=== PATIENT | female | born 1940 | race Caucasian/White ===

== ENCOUNTER 2020-01-19 08:06 | Outpatient (CLI) | payer BC, SELFPAY ==
--- NOTE | ~2020-01-19 | NM_ITS ---
EXAMINATION: NM evon stress w perfusion DATE: 01/19/2020 11:37 INDICATION: Preoperative evaluation with intermittent right bundle branch block on preoperative EKG a nd dyspnea on exertion. TECHNIQUE: Rest images were obtained following intravenous administration of 9.4 mCi Tc99m tetrofosmi n (Myoview). The patient was infused intravenously with Lexiscan (Regadenoson). Then, 27.8 mCi Tc99m tetrofosmin (Myoview) was administered intravenously, and stress images were obtained. Data was recon structed into short axis and horizontal and vertical long axis SPECT images. Gated SPECT images were also obtained. COMPARISON: None. FINDINGS: Small mild perfusion defect centered at the mid anterolateral wall involving small portions of the immediately adjacent mid inferolateral and basilar anterolateral segments. This appears large ly is not completely reversible with equivocal small residual perfusion defect on the rest images at the mid anterolateral segment. There is normal left ventricular chamber size, wall motion and ejecti on fraction. Left ventricular ejection fraction measures >70%. IMPRESSION: 1. Small region of mild ischemia centered at the mid anterolateral segment with equivocal small under lying nonreversible infarct. 2. Left ventricular ejection fraction measuring >70%. Reviewed, dictated and finalized at location A. IMPRESSION: 1. Small region of mild ischemia centered at the mid anterolateral segment with equivocal small underlying nonreversible infarct. 2. Left ventricular ejection fraction measuring >70%.
--- NOTE | 2020-01-19 09:10 | EST_ITS ---
Patient Info Name: Lily Dawn Age: 79 years : 1940 Gender: Female Ht: 65 in Wt: 139 lbs BSA: 1.71 m2 Exam Date: 01/19/2020 9:52 AM Exam Location: [facility] Stress Patient Status: Outpatient Admit Date: 01/19/2020 Staff Ordering Physician: Giancarlo Prather DO Attending Provider: Giancarlo Prather DO Exercise Technologist: Radha Anderson RDCS Exercise Physician: Giancarlo Prather DO Exam Type: CA stress evon w NM Study Info Indications R06.09 - Other forms of dyspnea A regadenoson stress test was performed. Summary 1. 1. Negative lexiscan stress test for ischemic ST changes by ECG criteria. 2. 2. Baseline hypertension. 3. 3. Nuclear scan to follow and will be reported separately. Please correlate with it. 4. 4. Patient informed of the above results. Protocol: Lexiscan Stress ECG Details Stage: REST Duration (min): 3 min : 39 sec HR (bpm): 63 SBP (mmHg): 145 DBP (mmHg): 90 Stage: REST Duration (min): 6 min : 38 sec HR (bpm): 66 SBP (mmHg): 145 DBP (mmHg): 90 Stage: STAGE 1 Duration (min): 0 min : 59 sec HR (bpm): 91 SBP (mmHg): 161 DBP (mmHg): 82 Stage: RECOVERY Duration (min): 1 min : 0 sec HR (bpm): 98 SBP (mmHg): 143 DBP (mmHg): 84 Stage: RECOVERY Duration (min): 2 min : 0 sec HR (bpm): 92 SBP (mmHg): 143 DBP (mmHg): 84 Stage: RECOVERY Duration (min): 3 min : 0 sec HR (bpm): 90 SBP (mmHg): 123 DBP (mmHg): 83 Stage: RECOVERY Duration (min): 4 min : 0 sec HR (bpm): 92 SBP (mmHg): 123 DBP (mmHg): 83 Stage: RECOVERY Duration (min): 4 min : 54 sec HR (bpm): 92 SBP (mmHg): 126 DBP (mmHg): 85 Rest HR: 66 bpm Peak HR: 101 bpm Rest Sys BP: 145 mmHg Peak Sys BP: 161 mmHg Max Pred HR: 142 bpm % Max Pred HR: 71 % Target HR: 121 bpm Max RPP: 16,261 bpm*mmHg Termination Reason: Completed protocol Cardiac Symptoms: Stomach discomfort Total Time: 1 min : 0 sec Rest Sutherland BP: 90 mmHg Peak Sutherland BP: 82 mmHg Total Dose: 0.4 mg Resting ECG Sinus rhythm with IRBBB. Stress ECG No ST changes. Arrhythmias None. Report Signatures
== END 2020-01-19 08:07 | disposition home or self-care (01) ==
PROVIDERS: PCP Internal Medicine; Visit Provider Internal Medicine Cardiovascular Disease
DX: Z01.810 Encounter for preprocedural cardiovascular examination (principal); R06.09 Other forms of dyspnea; I10 Essential (primary) hypertension
CPT/HCPCS: 78452; 93017; A9502; J2785

== ENCOUNTER 2022-03-07 01:39 | Inpatient (IN) | payer MEDICARE, BC, SELFPAY ==
[2022-03-07] VITALS (8 sets, daily range): BP systolic 100–119; BP diastolic 55–69; PULSE 66–80; RESP 14–18; TEMP 36.7–37.5; O2SAT 91–100; BMI 20.7
--- NOTE | ~2022-03-07 | XR_ITS ---
EXAMINATION: XR chest 1V portable DATE: 03/07/2022 02:33 INDICATION: Fall TECHNIQUE: frontal view of the chest was obtained. COMPARISON: Chest radiograph dated 06/28/2017 FINDINGS: Chronic elevation of the right hemidiaphragm. Pulmonary vascular congestion and increased interstitia l and mild airspace opacities throughout both lungs with perihilar predominance. No pleural effusion or pneumothorax. The cardiomediastinal silhouette is normal. Atherosclerotic aorta. Mild thoracolumba r levocurvature. No evident acute osseous abnormality. IMPRESSION: 1. Pulmonary vascular congestion with bilateral mild increased interstitial and airspace opacities wh ich could represent mild pulmonary edema, atelectasis, pneumonia or some combination thereof. Reviewed, dictated and finalized at location A. IMPRESSION: 1. Pulmonary vascular congestion with bilateral mild increased interstitial and airspace opacities which could represent mild pulmonary edema, atelectasis, pn eumonia or some combination thereof.
--- NOTE | ~2022-03-07 | XR_ITS ---
EXAMINATION: XR hip LT min 3V w AP pelvis DATE: 03/07/2022 02:33 INDICATION: Left hip pain post fall TECHNIQUE: Anteroposterior view of the pelvis and anteroposterior and cross-table lateral views of th e left hip were obtained. COMPARISON: None. FINDINGS: Transcervical fracture of the proximal left femur. There is 2 cm proximal migration and some external rotation. The fracture is mildly comminuted with an additional small fracture fragment at the infero medial margin of the fracture line. No other fractures identified. 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 Aortobiiliac endoluminal stent. IMPRESSION: 1. Proximal migration and external rotation of a mildly comminuted transcervical fracture of the prox imal left femur. Reviewed, dictated and finalized at location A. IMPRESSION: 1. Proximal migration and external rotation of a mildly comminuted transcervica l fracture of the proximal left femur.
--- NOTE | ~2022-03-07 | CT_ITS ---
EXAMINATION: CTA abdomen DATE: 03/07/2022 14:59 INDICATION: Leaking abdominal aortic aneurysm. TECHNIQUE: Computed tomographic angiography (CTA) of the abdomen was performed with 100 mL Omnipaque- 350 intravenous contrast. Automated exposure control and iterative reconstruction technique were empl oyed. The dose-length product was 189.82 mGy-cm. Maximum intensity projection 3D-reconstructions of t he aorta and other arteries were constructed by the technologist on a separate workstation. COMPARISON: Chest 2 views 02/19/2016 FINDINGS: The visualized portions of the lung bases demonstrate mild dependent atelectasis. There is chronic elevation of right hemidiaphragm. A calcified left lung nodule and calcified left hilar lymph nodes are consistent with old granulomatous disease. The heart size is normal. No pericardial effusi on. The liver is normal. Calcifications in the spleen are consistent with old granulomatous disease. The gallbladder is distended. Calcifications in the pancreas are consistent with chronic pancreatitis . There is a diverticulum of the second portion of the duodenum. The adrenal glands are normal. There is a 6 mm cyst in right kidney. There is focal atrophy of inferior pole of left kidney. There are no dilated loops of bowel. There is diverticulosis of the colon without evidence of diverticulitis. The re is a 6.9 cm fusiform infrarenal aortic aneurysm. Partially visualized is a stent graft in abdomina l aorta and the common iliac arteries. There are densities in the aneurysm sac. There is enlargement of left iliacus muscle with adjacent fat stranding. There are no pathologically enlarged lymph nodes. There is no free intraperitoneal fluid. There is moderate stenosis of celiac axis and mild stenosis of origin of superior mesenteric artery. There is mild stenosis of right renal artery origin and mode rate stenosis of left renal artery origin. There is moderate thoracic spondylosis and mild lumbar spo ndylosis. There is mild chronic anterior wedging of multiple thoracic vertebral bodies. IMPRESSION: 1. Partially visualized asymmetric enlargement of left iliacus muscle, likely hematoma. 2. 6.9 cm fusiform aneurysm of infrarenal aorta with partially visualized stent graft. Densities in t he aneurysm sac are suspicious for type II endoleak, but no noncontrast CT was performed. Abdomen and pelvis CTA without and with contrast is recommended. Reviewed, dictated and finalized at location B. IMPRESSION: 1. Partially visualized asymmetric enlargement of left iliacus muscle, likely h ematoma. 2. 6.9 cm fusiform aneurysm of infrarenal aorta with partially visualized stent graft. Densities in the aneurysm sac are suspicious for type II endoleak, but no noncontrast CT was performed. Abdomen and pelvis CTA without and with contra st is recommended.
--- NOTE | 2022-03-07 02:19 | PC.NURSE ---
XR at bedside
[2022-03-07 02:40] LABS: Basophils Absolute Auto 0.1 K/mm3 (0.0-0.1); Basophils Percent Auto 0.3 % (0.2-1.2); Eosinophils Percent Auto 0.3 % (0-4.4); Hematocrit 34.7 % (37.0-47.0); Immature Granulocyte Absolute 0.21 K/mm3 (0.00-0.031); Immature Granulocyte Percent A 1.4 % (0-0.5); Lymphocytes Absolute Auto 1.79 K/mm3 (0.9-3.2); Lymphocytes Percent Auto 12.2 % (18.3-44.2); Mean Corpuscular HGB Conc 31.7 g/dl (32-36); Mean Corpuscular Volume 97.7 fl (80-100); Mean Platelet Volume 9.9 fl (7.4-10.4); Monocytes Absolute Auto 1.1 K/mm3 (0.1-0.6); Monocytes Percent Auto 7.8 % (2.6-8.5); Neutrophils Absolute Auto 11.5 K/mm3 (1.3-6.7); Platelet Count Result 165 k/mm3 (150-375); Red Blood Count 3.55 M/mm3 (4.2-5.4); Red Cell Distribution Width 14.6 % (11.5-14.5); White Blood Count 14.7 K/mm3 (4.5-10.0)
[2022-03-07 02:51] LABS: Anion Gap 4 mmol/L (8-16); Blood Urea Nitrogen 19 mg/dL (7-17); Calcium 8.4 mg/dL (8.4-10.2); Carbon Dioxide 27 mmol/L (22-30); Chloride 107 mmol/L (98-107); Estimated Glomerular Filt Rate 53; Glucose 148 mg/dL (65-110); Potassium 3.8 mmol/L (3.4-5.0); Sodium 138 mmol/L (137-145)
[2022-03-07 02:54] LABS: INR 1.1; Prothrombin Time 14.1 Seconds (11.1-14.7)
[2022-03-07 02:55] LABS: Partial Thromboplastin Time 28.8 SECONDS (22.3-36.8)
--- NOTE | 2022-03-07 03:53 | ED.FALL ---
HPI - Fall General Chief Complaint: Fall Stated Complaint: FALL History of Present Illness HPI Narrative: Patient is an 81-year-old female who presents ER status post fall. Patient was getting out of bed when she fell to the ground. helped to get her back up and she slid out of bed landing on about again. She has suffered pain and deformity to her left hip. She has shortening the leg. No numbness or tingling. Denies head trauma. Patient has some dementia but seems to be able to answer questions. No evidence of trauma to the head. Patient is not on blood thinners. Related Data Home Medications Medication Instructions Recorded Confirmed memantine 10 ea PO PER PKG DIR 03/07/22 03/07/22 Allergies Allergy/AdvReac Type Severity Reaction Status Date / Time No Known Allergies Allergy Unknown Verified 03/07/22 01:47 Review of Systems Review of Systems: All systems reviewed & are unremarkable except as noted in HPI and below (Limited due to dementia) Constitutional: Constitutional: Denies chills, Denies fever(s) and Denies weakness Musculoskeletal: Musculoskeletal: Reports arthralgias and Reports joint swelling Neurologic: Denies headache(s), Denies focal weakness and Denies numbness PMFSH Past Medical History Medical History (Updated 03/07/22 @ 04:39 by Joby Franz MD) Abdominal aortic aneurysm without rupture (07/24/19) Essential (primary) hypertension Eversion deformity of right foot Hyperlipidemia, unspecified (07/24/19) Personal history of urinary (tract) infections Surgical History Surgical History (Updated 03/07/22 @ 04:20 by Joby Franz MD) History of AAA (abdominal aortic aneurysm) repair Family History Family History (Updated 06/02/16 @ 23:21 by DOCTOR UNKNOWN) Sibling Patient's brother is in good health Family history of diabetes mellitus in first degree relative Mother Family history of kidney disease, Onset Age: 41 Family history of diabetes mellitus in first degree relative, Onset Age: 41 Father Patient's father is Social History Social History Smoking status: Never smoker Alcohol intake: never Exam Narrative: GENERAL: Well-appearing, well-nourished, and in no acute distress. HEAD: Normocephalic, atraumatic. EYES: PERRL and EOMI. ENT: Mucous membranes moist. CHEST: Clear to auscultation. No respiratory distress. HEART: Regular rate and rhythm. Normal peripheral pulses. ABDOMEN: Soft, nontender, previous repaired AAA palpated but not pulsatile, normal active bowel sounds. EXTREMITIES: Unable to perform range of motion left lower extremity due to pain at the hip. Left leg shortening and external rotation noted. No edema. No abnormality to the right lower extremity or upper extremities. SKIN: Warm, dry, no rash. NEURO: Alert and oriented x3. PSYCH: Normal mood and affect. Course Course Emergency Course: Patient family informed of results. Consulted Dr. Khanna. Admit to hospitalist service. Keep n.p.o. Vital Signs Vital signs: Vital Signs Temperature 98.4 F 03/07/22 01:41 Pulse Rate 66 03/07/22 01:41 Respiratory Rate 14 03/07/22 01:41 Blood Pressure 110/57 L 03/07/22 01:41 Pulse Oximetry 91 03/07/22 01:41 Temperature 98.4 F 03/07/22 01:41 Pulse Rate 74 03/07/22 04:22 Respiratory Rate 14 03/07/22 04:22 Blood Pressure 116/69 03/07/22 04:22 Pulse Oximetry 100 03/07/22 04:22 MDM - Fall Lab Data Result diagrams: 03/07/22 02:34 03/07/22 02:34 Labs: Lab Results 03/07/22 03/07/22 03/07/22 Range/Units 02:34 02:34 02:34 WBC 14.7 H (4.5-10.0) K/mm3 RBC 3.55 L (4.2-5.4) M/mm3 Hgb 11.0 L (12.0-15.0) g/dL Hct 34.7 L (37.0-47.0) % MCV 97.7 (80-100) fl MCH 31.0 (26-34) pg MCHC 31.7 L (32-36) g/dl RDW 14.6 H (11.5-14.5) % Plt Count 165 (150-375) k/mm3 MPV 9.9 (7.4-10.4) fl Immature Gran % (Auto) 1.4
[2022-03-07] MEDS: MORPHINE SULFATE (*CRX) 4 MG/ML INJ IV PUSH ×3 (04:03→23:32)
--- NOTE | 2022-03-07 04:50 | ADMGEN ---
This patient, Lily Dawn, was admitted to Medical Room 348-01. Patient/family oriented to hospital policies and general routines including ID bracelet, bed and alarms, visiting hours, pain management, procedures, bathroom and other care routines, personal items, smoking policy, room service/diet, and visiting hours. Information on how to activate the Rapid Response Team has been discussed. Patient/Family are encouraged to report perceived risks to care and to ask questions if they do not understand what they are told or what they should do.
[2022-03-07] MEDS: SODIUM CHLORIDE 0.9% IV 1,000 ML 100 ML IV CONT ×2 (05:50→17:10)
--- NOTE | 2022-03-07 07:48 | PM.CNOR ---
Assessment and Plan Assessment and plan (1) Fracture of femoral neck, left, closed: Qualifiers: Encounter type: initial encounter Qualified Code(s): S72.002A - Fracture of unspecified part of neck of left femur, initial encounter for closed fracture Code(s): S72.002A - Fracture of unspecified part of neck of left femur, initial encounter for closed fracture Status: Acute Assessment and Plan: 81-year-old female with a displaced left femoral neck fracture. Surgically, her best option is going to be a cemented bipolar replacement. Her risk for cardiovascular complications needs to be better delineated. I discussed this with the hospitalist on the case. No plan for surgery today. Thank you for the consultation. History of Present Illness HPI Consult date: 03/07/22 Consult reason: fracture Chief complaint: hip fracture Narrative: 81-year-old female who fell out of bed this morning or late last night. She was evaluated in the [facility] and found to have a displaced left femoral neck fracture. She was admitted for further evaluation and management. Her history is significant for having had AAA repair couple of years ago. She does not recall the last time that the repair was evaluated. She said she usually gets around reasonably well at home without any type of a gait aid. Review of Systems Constitutional: Constitutional: Denies chills and Denies fever(s) Eyes: Eyes: Reports no additional eye complaints ENT: Reports system reviewed and no additional complaints, except as documented Cardiovascular: Cardiovascular: Denies chest pain Respiratory: Respiratory: Reports no additional respiratory complaints Gastrointestinal: Gastrointestinal: Reports abdominal pain ( Does report intermittent belly pain) and Denies bloating PMFSH Past Medical History Medical History (Updated 03/07/22 @ 07:55 by Elliot Khanna MD) Abdominal aortic aneurysm without rupture (07/24/19) Essential (primary) hypertension Eversion deformity of right foot Hyperlipidemia, unspecified (07/24/19) Personal history of urinary (tract) infections Surgical History Surgical History (Updated 03/07/22 @ 04:20 by Joby Franz MD) History of AAA (abdominal aortic aneurysm) repair Family History Family History (Updated 03/07/22 @ 05:37 by Elle Cabral RN) Sibling Family history of diabetes mellitus in first degree relative Patient's brother is in good health Abdominal aneurysm Mother Family history of kidney disease, Onset Age: 41 Family history of diabetes mellitus in first degree relative, Onset Age: 41 Father Patient's father is Dementia Social History Social History Smoking status: Former smoker Tobacco type: cigarettes Alcohol intake: never Substance use: never Substance use type: does not use Spiritual care concerns: No Meds Home Medications and Allergies Home Medications Medication Instructions Recorded Confirmed Type memantine 10 mg PO BID 03/07/22 03/07/22 History pantoprazole 40 mg PO DAILY 03/07/22 03/07/22 History sertraline 75 mg PO DAILY 03/07/22 03/07/22 History Allergies Allergy/AdvReac Type Severity Reaction Status Date / Time No Known Allergies Allergy Unknown Verified 03/07/22 01:47 Vital Signs Vital Signs - 24 hr 03/07/22 01:41 03/07/22 03:15 03/07/22 04:20 Temperature 98.4 F Pulse Rate 66 76 75 Respiratory Rate 14 14 14 Blood Pressure 110/57 L 119/63 116/69 Pulse Oximetry 91 95 97 03/07/22 04:22 03/07/22 04:50 03/07/22 04:51 Temperature 98.4 F Pulse Rate 74 80 Respiratory Rate 14 16 Blood Pressure 116/69 100/55 L Pulse Oximetry 100 92 99 Exam Const: General: cooperative, no acute distress and alert Nutritional Appearance: other Orientation/consciousness: Other orientation findings ( slightly confused this morning) Limitations: no limitations HENMT: Head: normal to inspection E
--- NOTE | 2022-03-07 11:10 | PM.IMHP ---
H&P: HPI History of Present Illness Date/Time: 03/07/22 11:10 Chief Complaint: Hip pain Narrative: 81 years old female with past medical history of dementia aortic aneurysm status post repair last time patient seen her vascular surgeon was last December patient is poor historian but complain of abdominal pain on exam abdomen is tender patient daughter was in the room patient had a fall start complaining of left hip pain x-ray of the pelvis showed left hip fracture require surgical intervention I discussed with the surgeon patient probably high risk need to be transferred to facility where patient has established care at [facility] Review of Systems Review of Systems: Poor historian unable to obtain [facility] Past Medical History Medical History Abdominal aortic aneurysm without rupture (07/24/19) Essential (primary) hypertension Eversion deformity of right foot Hyperlipidemia, unspecified (07/24/19) Personal history of urinary (tract) infections Surgical History Surgical History History of AAA (abdominal aortic aneurysm) repair Family History Family History Sibling Family history of diabetes mellitus in first degree relative Patient's brother is in good health Abdominal aneurysm Mother Family history of kidney disease, Onset Age: 41 Family history of diabetes mellitus in first degree relative, Onset Age: 41 Father Patient's father is Dementia Social History Social History Smoking status: Former smoker Tobacco type: cigarettes Alcohol intake: never Substance use: never Substance use type: does not use Spiritual care concerns: No Meds Home Medications and Allergies Home Medications Medication Instructions Recorded Confirmed Type memantine 10 mg PO BID 03/07/22 03/07/22 History pantoprazole 40 mg PO DAILY 03/07/22 03/07/22 History sertraline 75 mg PO DAILY 03/07/22 03/07/22 History Allergies Allergy/AdvReac Type Severity Reaction Status Date / Time No Known Allergies Allergy Unknown Verified 03/07/22 01:47 Vital Signs Vital Signs - 24 hr 03/07/22 01:41 03/07/22 03:15 03/07/22 04:20 Temperature 98.4 F Pulse Rate 66 76 75 Respiratory Rate 14 14 14 Blood Pressure 110/57 L 119/63 116/69 Pulse Oximetry 91 95 97 03/07/22 04:22 03/07/22 04:50 03/07/22 04:51 Temperature 98.4 F Pulse Rate 74 80 Respiratory Rate 14 16 Blood Pressure 116/69 100/55 L Pulse Oximetry 100 92 99 Exam Const: General: uncomfortable HENMT: Mouth: Yes dry mucous membranes Neck: Neck: no JVD Resp: Auscultation: clear to auscultation bilaterally Cardio: Rate: regular rate Rhythm: regular rhythm GI: GI Palp: Yes Tenderness to palpation present (GI) Percussion: Yes normal to percussion Auscultation: normal bowel sounds Skin: General skin exam: normal color Neuro: Speech: normal speech Motor exam (neuro): 5/5 motor strength present throughout and Normal motor muscle tone present throughout Extrem: General: normal to inspection Right upper extremity: normal to inspection Left upper extremity: normal to inspection Right lower extremity: normal to inspection Left lower extremity: normal to inspection Psych: Mental Status: mental status grossly normal H&P: Results Labs Labs: Short CBC 03/07/22 Range/Units 02:34 WBC 14.7 H (4.5-10.0) K/mm3 Hgb 11.0 L (12.0-15.0) g/dL Hct 34.7 L (37.0-47.0) % Plt Count 165 (150-375) k/mm3 BMP 03/07/22 02:34 Sodium 138 Potassium 3.8 Chloride 107 Carbon Dioxide 27 BUN 19 H Creatinine 1.00 Glucose 148 H Calcium 8.4 Assessment and Plan Assessment and plan (1) Fracture of femoral neck, left, closed: Qualifiers: Encounter
[2022-03-07] MEDS: SERTRALINE HCL 25 MG TABLET 75 MG PO (12:15)
[2022-03-07] MEDS: MEMANTINE 10 MG TABLET PO ×2 (12:15→22:45)
[2022-03-07] MEDS: PANTOPRAZOLE 40 MG TABLET PO (12:15)
[2022-03-07 12:55] LABS: Hemoglobin A1C 5.2 % (<5.7)
[2022-03-07 14:05] LABS: EDCOVIDSCREEN Negative (Negative)
[2022-03-07] MEDS: HYDROcodone/acetaminophen (*CRX) 5-325 MG TABLET 1 TAB PO (16:10)
[2022-03-07] MEDS: cefTRIAXone 2 GM in SODIUM CHLORIDE 0.9% IV 100 ML 200 ML IVPB (17:11)
[2022-03-08 04:19] VITALS: BP 112/65; PULSE 82; RESP 16; TEMP 37.2; O2SAT 93
[2022-03-08] MEDS: MORPHINE SULFATE (*CRX) 4 MG/ML INJ IV PUSH (06:48)
[2022-03-08] MEDS: SODIUM CHLORIDE 0.9% IV 1,000 ML 100 ML IV CONT ×2 (06:48→16:11)
[2022-03-08] MEDS: PANTOPRAZOLE 40 MG TABLET PO (08:53)
[2022-03-08] MEDS: SERTRALINE HCL 25 MG TABLET 75 MG PO (08:53)
[2022-03-08] MEDS: MEMANTINE 10 MG TABLET PO ×2 (08:53→20:45)
[2022-03-08 09:00] VITALS: O2SAT 95
--- NOTE | 2022-03-08 10:51 | PM.IMPN ---
Progress Note: A&P Assessment and Plan (1) Fracture of femoral neck, left, closed: Qualifiers: Encounter type: initial encounter Qualified Code(s): S72.002A - Fracture of unspecified part of neck of left femur, initial encounter for closed fracture Code(s): S72.002A - Fracture of unspecified part of neck of left femur, initial encounter for closed fracture Status: Acute Assessment and Plan: Reviewed pelvic x-ray Discussed with orthopedic physician Patient at increased risk for surgical complication transfer to [facility] (2) Hyperlipidemia, unspecified: Onset Date: 07/24/19 Code(s): E78.5 - Hyperlipidemia, unspecified Status: Acute Assessment and Plan: Statin (3) Essential (primary) hypertension: Code(s): I10 - Essential (primary) hypertension Status: Acute Assessment and Plan: Monitor (4) Abdominal aortic aneurysm without rupture: Onset Date: 07/24/19 Code(s): I71.4 - Abdominal aortic aneurysm, without rupture Status: Acute Assessment and Plan: CTA of the abdomen Discussed with vascular surgeon No significant change from previous CT (5) Pure hypercholesterolemia: Code(s): E78.00 - Pure hypercholesterolemia, unspecified Status: Acute Assessment and Plan: Statin Additional Plan DVT prophylaxis per Orthopedic Subjective Date/time seen: 03/08/22 10:51 Interval history: 81 years old female with past medical history of dementia aortic aneurysm status post repair last time patient seen her vascular surgeon was last December patient is poor historian but complain of abdominal pain on exam abdomen is tender patient daughter was in the room patient had a fall start complaining of left hip pain x-ray of the pelvis showed left hip fracture require surgical intervention I discussed with the surgeon patient probably high risk need to be transferred to facility where patient has established care at [facility] transfer was arranged pending bed to [facility] spoke with the vascular surgeon I spoke with the trauma surgeon patient will be accepted under the vascular surgeon service Patient feels better today no change in abdominal pain seems baseline Patient denies fever headache chest pain shortness of breath I am seeing the patient for hip fracture Exam Narrative: Alert Chest no wheeze crackles Abdomen tender nondistended CVS S1 + S2 no Lower extremity edema Objective Data Vital Signs Vital Signs: Vital Signs - 24 hr 03/07/22 14:00 03/07/22 21:18 03/08/22 04:19 Temperature 99.5 F 98.1 F 99 F Pulse Rate 70 78 82 Respiratory Rate 18 18 16 Blood Pressure 118/64 112/65 Pulse Oximetry 91 95 93 Intake/Output Intake/Output: Intake & Output 03/05/22 03/06/22 03/07/22 03/08/22 23:59 23:59 23:59 23:59 Intake Total 1150 1380 Output Total 700 350 Balance 450 1030 Meds/Results Medications: Active Medications Generic Name Dose Route Start Last Admin Trade Name Freq PRN Reason Stop Dose Admin Hydrocodone Bitart/Acetaminophen 1 tab 03/07/22 11:04 03/07/22 16:10 Hydrocodone/Acetaminophen (*Crx) 5-325 Mg Tablet PO 1 tab Q4H PRN Administration Moderate Pain (4-6) Sodium Chloride 1,000 mls @ 100 mls/hr 03/07/22 04:05 03/08/22 06:48 Normal Saline Iv IV CONT 100 mls/hr .Q10H PIPPA Administration Ceftriaxone Sodium 2 gm/ 100 mls @ 200 mls/hr 03/07/22 18:00 03/07/22 22:57 Sodium Chloride IVPB Infused QPM PIPPA Infusion Memantine 10 mg 03/07/22 11:10 03/08/22 08:53 Memantine 10 Mg Tablet PO 10 mg Q12HR PIPPA Administration Morphine Sulfate 4 mg 03/07/22 03:56 03/08/22 06:48 Morphine Sulfate (*Crx) 4 Mg/Ml Inj IV PUSH 4 mg Q2H PRN Administration Pain Rated 7-10 Ondansetron HCl 4 mg 03/07/22 03:56 Ondansetron Inj 4 Mg/2 Ml Vial IV PUSH Q4H PRN Nausea Pantoprazole Sodium 40 mg 03/07/22 11:10 03/08
[2022-03-08 14:00] VITALS: BP 118/60; PULSE 83; RESP 16; TEMP 37.5; O2SAT 95
[2022-03-08] MEDS: cefTRIAXone 2 GM in SODIUM CHLORIDE 0.9% IV 100 ML 200 ML IVPB (17:10)
[2022-03-08 19:47] VITALS: BP 139/70; PULSE 86; RESP 16; TEMP 37.2; O2SAT 93
[2022-03-08 20:00] VITALS: PULSE 86; RESP 16; O2SAT 94
[2022-03-08 20:36] VITALS: O2SAT 94
[2022-03-08] MEDS: HYDROcodone/acetaminophen (*CRX) 5-325 MG TABLET 1 TAB PO (20:45)
[2022-03-09] MEDS: SODIUM CHLORIDE 0.9% IV 1,000 ML 100 ML IV CONT ×3 (02:58→23:11)
[2022-03-09] MEDS: HYDROcodone/acetaminophen (*CRX) 5-325 MG TABLET 1 TAB PO ×3 (05:58→20:39)
[2022-03-09 06:00] VITALS: BP 134/71; PULSE 76; RESP 16; O2SAT 93
[2022-03-09 06:03] VITALS: TEMP 36.9
[2022-03-09] MEDS: MEMANTINE 10 MG TABLET PO ×2 (09:58→20:39)
[2022-03-09] MEDS: SERTRALINE HCL 25 MG TABLET 75 MG PO (09:58)
[2022-03-09] MEDS: PANTOPRAZOLE 40 MG TABLET PO (09:58)
[2022-03-09 10:00] VITALS: O2SAT 94
--- NOTE | 2022-03-09 10:55 | PM.IMPN ---
Progress Note: A&P Assessment and Plan (1) Fracture of femoral neck, left, closed: Qualifiers: Encounter type: initial encounter Qualified Code(s): S72.002A - Fracture of unspecified part of neck of left femur, initial encounter for closed fracture Code(s): S72.002A - Fracture of unspecified part of neck of left femur, initial encounter for closed fracture Status: Acute Assessment and Plan: Reviewed pelvic x-ray Discussed with orthopedic physician Patient at increased risk for surgical complication transfer to [facility] (2) Hyperlipidemia, unspecified: Onset Date: 07/24/19 Code(s): E78.5 - Hyperlipidemia, unspecified Status: Acute Assessment and Plan: Statin (3) Essential (primary) hypertension: Code(s): I10 - Essential (primary) hypertension Status: Acute Assessment and Plan: Monitor (4) Abdominal aortic aneurysm without rupture: Onset Date: 07/24/19 Code(s): I71.4 - Abdominal aortic aneurysm, without rupture Status: Acute Assessment and Plan: CTA of the abdomen Discussed with vascular surgeon No significant change from previous CT (5) Pure hypercholesterolemia: Code(s): E78.00 - Pure hypercholesterolemia, unspecified Status: Acute Assessment and Plan: Statin (6) Transition from hospice to acute care: Status: Acute Assessment and Plan: Patient and family would like to proceed with hospice evaluation Hospice was consulted Plan for pain control today And probable discharge home with hospice in the morning once pain is better controlled and equipment delivered to the patient home Additional Plan DVT prophylaxis per Orthopedic Subjective Date/time seen: 03/09/22 10:55 Interval history: 81 years old female with past medical history of dementia aortic aneurysm status post repair last time patient seen her vascular surgeon was last December patient is poor historian but complain of abdominal pain on exam abdomen is tender patient daughter was in the room patient had a fall start complaining of left hip pain x-ray of the pelvis showed left hip fracture require surgical intervention I discussed with the surgeon patient probably high risk need to be transferred to facility where patient has established care at [facility] transfer was arranged pending bed to [facility] spoke with the vascular surgeon I spoke with the trauma surgeon patient will be accepted under the vascular surgeon service, discussed today with the patient daughter family are interested in hospice care as patient dementia is worsening and has multiple medical condition I agree with hospice evaluation hospice was consulted Patient feels better today no change in abdominal pain seems baseline Patient denies fever headache chest pain shortness of breath I am seeing the patient for hip fracture Exam Narrative: Alert Chest no wheeze crackles Abdomen tender nondistended CVS S1 + S2 no Lower extremity edema Objective Data Vital Signs Vital Signs: Vital Signs - 24 hr 03/08/22 14:00 03/08/22 19:47 03/08/22 20:00 Temperature 99.5 F 99 F Pulse Rate 83 86 86 Respiratory Rate 16 16 16 Blood Pressure 118/60 139/70 Pulse Oximetry 95 93 94 03/08/22 20:36 03/09/22 06:00 03/09/22 06:03 Temperature 98.5 F Pulse Rate 76 Respiratory Rate 16 Blood Pressure 134/71 Pulse Oximetry 94 93 Intake/Output Intake/Output: Intake & Output 03/06/22 03/07/22 03/08/22 03/09/22 23:59 23:59 23:59 23:59 Intake Total 1150 2600 1105 Output Total 700 700 900 Balance 450 1900 205 Meds/Results Medications: Active Medications Generic Name Dose Route Start Last Admin Trade Name Freq PRN Reason Stop Dose Admin Hydrocodone Bitart/Acetaminophen 1 tab 03/07/22 11:04 03/09/22 05:58 Hydrocodone/Acetaminophen (*Crx) 5-325 Mg Tablet PO 1 tab Q4H PRN Administration Moderate Pain (4-6) Sod
[2022-03-09 14:00] VITALS: BP 131/71; PULSE 77; RESP 18; TEMP 36.6; O2SAT 94
[2022-03-09] MEDS: cefTRIAXone 2 GM in SODIUM CHLORIDE 0.9% IV 100 ML 200 ML IVPB (17:25)
[2022-03-09 20:00] VITALS: PULSE 77; RESP 18; O2SAT 94
[2022-03-09 22:00] VITALS: BP 153/77; PULSE 71; RESP 20; TEMP 37.4; O2SAT 91
[2022-03-09] MEDS: ACETAMINOPHEN 325 MG TABLET 650 MG PO (23:34)
[2022-03-10] MEDS: HYDROcodone/acetaminophen (*CRX) 5-325 MG TABLET 1 TAB PO ×3 (03:39→12:31)
[2022-03-10 06:00] VITALS: BP 135/81; PULSE 64; RESP 20; TEMP 36.9; O2SAT 96
[2022-03-10] MEDS: SERTRALINE HCL 25 MG TABLET 75 MG PO (08:17)
[2022-03-10] MEDS: MEMANTINE 10 MG TABLET PO (08:18)
[2022-03-10] MEDS: PANTOPRAZOLE 40 MG TABLET PO (08:18)
--- NOTE | 2022-03-10 10:13 | PM.DS ---
DS: Admitting Diagnosis Discharge Date 03/10/2022 Admitting Diagnosis Left hip pain DS: Discharge Diagnosis Discharge Diagnosis (1) Fracture of femoral neck, left, closed: Qualifiers: Encounter type: initial encounter Qualified Code(s): S72.002A - Fracture of unspecified part of neck of left femur, initial encounter for closed fracture Code(s): S72.002A - Fracture of unspecified part of neck of left femur, initial encounter for closed fracture Status: Acute Assessment and Plan: Reviewed pelvic x-ray Discussed with orthopedic physician Patient at increased risk for surgical complication Patient was accepted at [facility] but family decided to proceed with hospice care which is I agree with taking patient has multiple comorbidities worsening dementia abdominal aortic aneurysm significantly reduced functional status (2) Hyperlipidemia, unspecified: Onset Date: 07/24/19 Code(s): E78.5 - Hyperlipidemia, unspecified Status: Acute Assessment and Plan: Comfort care (3) Essential (primary) hypertension: Code(s): I10 - Essential (primary) hypertension Status: Acute Assessment and Plan: Monitor (4) Abdominal aortic aneurysm without rupture: Onset Date: 07/24/19 Code(s): I71.4 - Abdominal aortic aneurysm, without rupture Status: Acute Assessment and Plan: CTA of the abdomen Discussed with vascular surgeon No significant change from previous CT Comfort care (5) Pure hypercholesterolemia: Code(s): E78.00 - Pure hypercholesterolemia, unspecified Status: Acute Assessment and Plan: Comfort care (6) Transition from hospice to acute care: Status: Acute Assessment and Plan: Patient and family would like to proceed with hospice evaluation/comfort care Hospice was consulted Pain control DS: Summary Hospital Course Hospital Course: 81 years old female with past medical history of dementia aortic aneurysm status post repair last time patient seen her vascular surgeon was last December patient is poor historian but complain of abdominal pain on exam abdomen is tender ,patient daughter was in the room ,patient had a fall start complaining of left hip pain x-ray of the pelvis showed left hip fracture require surgical intervention I discussed with the surgeon patient probably high risk need to be transferred to facility where patient has established care at [facility] transfer was arranged pending available bed to [facility] spoke with the vascular surgeon, I spoke with the trauma surgeon patient was accepted for transfer to [facility], taken into the count worsening functional status worsening dementia family decided to proceed with hospice care hospice was consulted patient will be discharged to hospice care follow-up with PCP in 1 week Time Spent with Patient Time attestation: Total time spent providing and/or coordinating discharge services: Exam Narrative: Alert Chest no wheeze crackles Abdomen tender nondistended CVS S1 + S2 no Lower extremity edema DS: Data Data Completed and Pending Labs on day of discharge: Preliminary micro results at discharge 03/07/22 16:41 Blood Culture - Preliminary Blood 03/07/22 16:41 Blood Culture - Preliminary Blood Discharge Plan Discharge Attending physician on discharge: Kristie Caldwell M.A. Consulting providers: Roberto Morejon Discharging Clinician: Kristie Caldwell M.A. Patient Disposition: Hospice - Home Activity: as tolerated Diet: as tolerated Stand Alone Forms: General Discharge Information Follow-up/Referrals: Braulio,Steve Modi MD [Primary Care Provider] - Discharge Medications: New hydrocodone-acetaminophen 5-325 mg Tablet 1 tablet PO Q4H PRN (Reason: Moderate Pain (4-6)) Qty: 30 RF: 0 lorazepam [Lorazepam Intensol] 2 mg/mL concentrate 1 mg PO Q2H PRN (Reason: agitation) Qty: 30
[2022-03-10] MEDS: LORazepam (*CRX) 1 MG TABLET PO (13:39)
== END 2022-03-10 15:15 | disposition hospice, home (50) | DRG 536 ==
LOC: ANHED 02:49 → ANH3MED 04:16
PROVIDERS: Admitting Provider Internal Medicine; Emergency Provider Emergency Medicine; PCP Internal Medicine; Visit Provider Internal Medicine
DX: S72.032A Displaced midcervical fracture of left femur, initial encounter for closed fracture (principal); Z20.822 Contact with and (suspected) exposure to COVID-19; W06.XXXA Fall from bed, initial encounter; I10 Essential (primary) hypertension; E78.5 Hyperlipidemia, unspecified; R73.9 Hyperglycemia, unspecified; E78.00 Pure hypercholesterolemia, unspecified; I71.4 Abdominal aortic aneurysm, without rupture; F03.90 Unspecified dementia, unspecified severity, without behavioral disturbance, psychotic disturbance, mood disturbance, and anxiety; Z87.891 Personal history of nicotine dependence; Z51.5 Encounter for palliative care
CPT/HCPCS: 36415; 51702; 71045; 73502; 74175; 80048; 83036; 85025; 85610; 85730; 87040; 87426; 96361; 96374; 99285; A9270; C9803; G0378; J0696; J2270; J7030; Q9967